=== PATIENT | female | born 1970 | race African-American/Black ===

== ENCOUNTER 2023-02-19 18:14 | Emergency (ER) | payer OTHER ==
[~2023-02-19] VITALS: Ht 165.1 cm; Wt 97.7 kg
[2023-02-19 18:19] VITALS: TEMP 98.3
[2023-02-19] MEDS ORDERED: FURO20 PO (19:44)
[2023-02-19] MEDS ORDERED: IBUP-1492 PO (19:44)
[2023-02-19] MEDS ORDERED: IBUPROFEN 600 MG TABLET PO ONE (19:45)
[2023-02-19 20:24] VITALS: BP 139/78; PULSE 70; RESP 16
== END 2023-02-19 21:05 | disposition home or self-care (01) ==
LOC: EMS 18:15
DX: R60.0 Localized edema (principal)
CPT/HCPCS: 99283